=== PATIENT | male | born 1970 | race Caucasian/White ===

== ENCOUNTER 2018-11-15 20:48 | Inpatient (IN) | payer MEDICAID ==
[~2018-11-15] VITALS: Ht 165.1 cm; Wt 74.8 kg
[2018-11-15 20:55] VITALS: Ht 165.1 cm; Wt 74.8 kg
[2018-11-15 21:53] LABS: BASOPHIL % 0.3 % (0-2); PLATELET COUNT 224 x10^3mcL (130-400)
[2018-11-15 22:01] LABS: CALCIUM 9.3 mg/dL (8.5-10.1); CARBON DIOXIDE 25.5 mmol/L (21-32); CHLORIDE SERUM 100 mmol/L (98-107); CREATININE SERUM 1.1 mg/dL (0.7-1.3); GFR1 > 60 mL/min; GLUCOSE SERUM 125 mg/dL (74-106); POTASSIUM SERUM 3.7 mmol/L (3.5-5.1); SODIUM SERUM 134 mmol/L (136-145)
[2018-11-15 22:06] LABS: ALBUMIN 4.2 g/dL (3.4-5.0); ALKALINE PHOSPHATASE 103 U/L (46-116); ALT/SGPT 29 U/L (16-63); AST/SGOT 18 U/L (15-37); BILIRUBIN TOTAL 0.8 mg/dL (0.20-1.00); LIPASE 102 IU/L (73-393)
[2018-11-15 22:07] LABS: TOTAL PROTEIN, SERUM 8.5 g/dL (6.4-8.2)
[2018-11-15 23:58] LABS: CHOLESTEROL/HDL RATIO 4.6; PHOSPHOROUS 1.9 mg/dL (2.5-4.9)
[2018-11-16 00:39] VITALS: BP 137/86
[2018-11-16 06:03] VITALS: BP 134/90
[2018-11-16 06:15] LABS: BASOPHIL % 0.3 % (0-2); PLATELET COUNT 213 x10^3mcL (130-400)
[2018-11-16 06:26] LABS: CARBON DIOXIDE 26.6 mmol/L (21-32); CHLORIDE SERUM 104 mmol/L (98-107); GFR1 > 60 mL/min; GLUCOSE SERUM 105 mg/dL (74-106); MAGNESIUM 2.3 mg/dL (1.8-2.4); PHOSPHOROUS 3.6 mg/dL (2.5-4.9); POTASSIUM SERUM 3.8 mmol/L (3.5-5.1); SODIUM SERUM 139 mmol/L (136-145)
[2018-11-16 09:33] VITALS: BP 143/95
[2018-11-16 10:14] LABS: microscopic required? NO
[2018-11-16 10:26] LABS: urine erythrocyte NEGATIVE (NEGATIVE)
[2018-11-16 10:41] LABS: AMPHETAMINE QUAL UR NONE DETECTED (See below)
[2018-11-16 13:27] VITALS: BP 131/80
[2018-11-16 17:13] VITALS: BP 130/76
[2018-11-16 21:33] VITALS: BP 122/81
[2018-11-17 06:12] VITALS: BP 137/87
[2018-11-17 06:14] VITALS: BP 124/77
[2018-11-17 07:04] LABS: CARBON DIOXIDE 27.2 mmol/L (21-32); CHLORIDE SERUM 103 mmol/L (98-107); CREATININE SERUM 1.1 mg/dL (0.7-1.3); GFR1 > 60 mL/min; GLUCOSE SERUM 115 mg/dL (74-106); MAGNESIUM 2.5 mg/dL (1.8-2.4); PHOSPHOROUS 3.2 mg/dL (2.5-4.9); POTASSIUM SERUM 3.7 mmol/L (3.5-5.1); SODIUM SERUM 138 mmol/L (136-145)
[2018-11-17 07:38] LABS: BASOPHIL % 0.1 % (0-2); PLATELET COUNT 207 x10^3mcL (130-400); RED CELL DISTRIBUTION WIDTH 14.1 % (11.5-14.5)
[2018-11-17 09:05] VITALS: BP 125/79
[2018-11-17 16:27] VITALS: BP 146/98
[2018-11-17 21:51] VITALS: BP 144/83
[2018-11-18 05:37] VITALS: BP 120/87
[2018-11-18 07:17] LABS: CALCIUM 8.1 mg/dL (8.5-10.1); CARBON DIOXIDE 27.2 mmol/L (21-32); CHLORIDE SERUM 104 mmol/L (98-107); CREATININE SERUM 1.1 mg/dL (0.7-1.3); GFR1 > 60 mL/min; GLUCOSE SERUM 87 mg/dL (74-106); MAGNESIUM 2.3 mg/dL (1.8-2.4); PHOSPHOROUS 3.7 mg/dL (2.5-4.9); POTASSIUM SERUM 3.4 mmol/L (3.5-5.1); SODIUM SERUM 138 mmol/L (136-145)
[2018-11-18 08:11] VITALS: BP 160/90
[2018-11-18 09:39] LABS: BASOPHIL % 0.6 % (0-2); PLATELET COUNT 205 x10^3mcL (130-400)
[2018-11-18] MEDS ORDERED: ACETAMINOPHEN-H1 TA1 PO (10:43)
[2018-11-18] MEDS ORDERED: LEV500 PO (11:40)
[2018-11-18 11:47] VITALS: BP 160/90
== END 2018-11-18 15:00 | disposition home or self-care (01) | DRG 233 ==
LOC: ED 20:48 → MU 22:59
PROVIDERS: Emergency Medicine; Surgery; ADMIT Internal Medicine
PROC: 0DTJ4ZZ Resection of Appendix, Percutaneous Endoscopic Approach (ICD-10-PCS; principal; 2018-11-16 10:30)
DX: K35.32 Acute appendicitis with perforation, localized peritonitis, and gangrene, without abscess (principal); E83.39 Other disorders of phosphorus metabolism; E87.1 Hypo-osmolality and hyponatremia; E83.41 Hypermagnesemia; E78.5 Hyperlipidemia, unspecified; F10.10 Alcohol abuse, uncomplicated; Z68.27 Body mass index [BMI] 27.0-27.9, adult
CPT/HCPCS: J0690; J1170; J1885; J2175; J2250; J2405; J2543; J3010; J3490; J7030

== ENCOUNTER 2019-03-24 10:23 | Emergency (ER) | payer SELFPAY ==
[~2019-03-24] VITALS: Ht 165.1 cm; Wt 74.2 kg
[~2019-03-24 10:23] MED LIST: ACETAMINOPHEN-H1 TA1 PO; LEV500 PO
[2019-03-24 10:31] VITALS: Ht 165.1 cm; Wt 74.2 kg
[2019-03-24 11:08] VITALS: BP 128/85
== END 2019-03-24 11:08 | disposition home or self-care (01) ==
LOC: ED 10:23
DX: K64.9 Unspecified hemorrhoids (principal); Z90.89 Acquired absence of other organs